=== PATIENT | male | born 1940 | race Caucasian/White ===

== ENCOUNTER 2020-12-16 00:45 | Emergency (ER) | payer MEDICARE, BC ==
[~2020-12-16] VITALS: Ht 175.3 cm; Wt 75.0 kg
[2020-12-16 00:51] VITALS: TEMP 97.2
[2020-12-16 01:20] LABS: COLLECTION METHOD CATHETER
[2020-12-16 01:29] LABS: MUCOUS Present /lpf; PH 7 (5-8); SQUAMOUS EPITHELIAL None Seen /hpf; URINE APPEARANCE Hazy; URINE BACTERIA Rare /hpf; URINE BILIRUBIN Negative (NEGATIVE); URINE BLOOD 3+ (NEGATIVE); URINE CALCIUM OXALATE CRYSTAL Present /hpf; URINE COLOR Yellow; URINE GLUCOSE Negative (NEGATIVE); URINE KETONE Negative (NEGATIVE); URINE LEUKOCYTE ESTERASE 3+ (NEGATIVE); URINE NITRATE Positive (NEGATIVE); URINE PROTEIN(semi-quant) 1+ (NEGATIVE); URINE RBC >50 /hpf; URINE UROBILINOGEN Negative (NEGATIVE)
[2020-12-16] MEDS ORDERED: CEFTIN 250250 MG/TAB PO (01:54)
[2020-12-16 02:08] VITALS: BP 122/80; PULSE 87
[2020-12-18] MEDS ORDERED: CIPRO 500MG TA500 MG PO ×2 (10:24)
== END 2020-12-16 02:08 | disposition home or self-care (01) ==
LOC: COL.ER 00:45
PROVIDERS: Nurse Practitioner
DX: N39.0 Urinary tract infection, site not specified (principal)